=== PATIENT | female | born 1985 | race Caucasian/White ===

== ENCOUNTER 2018-04-18 14:43 | Outpatient (CLI) | payer MEDICAID ==
[2018-04-18 20:05] LABS: HCG,QUALITATIVE BLOOD NEGATIVE
== END 2018-04-18 14:44 | disposition home or self-care (01) ==
LOC: LAB.N 14:43
PROVIDERS: ATTEND Nurse Practitioner Gerontology
DX: N91.1 Secondary amenorrhea (principal)
CPT/HCPCS: 36415; 84703

== ENCOUNTER 2018-11-16 08:00 | Outpatient (CLI) | payer MEDICAID | END 2018-11-16 23:59 | disposition home or self-care (01) | LOC: LAB.N 08:00 | PROVIDERS: ATTEND Nurse Practitioner Obstetrics & Gynecology | DX: O03.9 Complete or unspecified spontaneous abortion without complication (principal) | CPT/HCPCS: 36415; 81599 ==

== ENCOUNTER 2018-11-18 08:00 | Outpatient (CLI) | payer MEDICAID | END 2018-11-18 23:59 | disposition home or self-care (01) | LOC: LAB.N 08:00 | PROVIDERS: ATTEND Nurse Practitioner Obstetrics & Gynecology | DX: O03.9 Complete or unspecified spontaneous abortion without complication (principal) | CPT/HCPCS: 36415; 84702 ==

== ENCOUNTER 2019-06-23 08:00 | Outpatient (CLI) | payer MEDICAID ==
[2019-06-23 19:04] LABS: TRICHOMONAS VAGINALIS DNA NEGATIVE (NEGATIVE)
[2019-06-26 14:51] LABS: HIV AG/AB 4TH GEN NON-REACTIVE (NON-REACTIVE)
== END 2019-06-23 23:59 | disposition home or self-care (01) ==
LOC: LAB.N 08:00
PROVIDERS: ATTEND Nurse Practitioner Gerontology
DX: Z11.3 Encounter for screening for infections with a predominantly sexual mode of transmission (principal)
CPT/HCPCS: 36415; 81599; 86592; 87389; 87491; 87591; 87661